=== PATIENT | female | born 1950 | race Caucasian/White ===

== ENCOUNTER → 2023-12-03 14:42 | Outpatient (BNVA) | payer MEDICARE, BC, SELFPAY | PROVIDERS: PCP Nurse Practitioner Family; Visit Provider Podiatrist Foot & Ankle Surgery | DX: M79.671 Pain in right foot (principal); M79.672 Pain in left foot; M20.5X1 Other deformities of toe(s) (acquired), right foot; M20.5X2 Other deformities of toe(s) (acquired), left foot; M77.41 Metatarsalgia, right foot; M77.42 Metatarsalgia, left foot | CPT/HCPCS: 73630; 99203 ==

== ENCOUNTER 2023-12-26 11:19 | Outpatient (CLI) | payer MEDICARE, BC, SELFPAY | END 2023-12-26 11:20 | disposition home or self-care (01) | LOC: SPT 11:20 | PROVIDERS: PCP Nurse Practitioner Family; Visit Provider Podiatrist Foot & Ankle Surgery | DX: Z46.89 Encounter for fitting and adjustment of other specified devices (principal); M20.21 Hallux rigidus, right foot; M20.22 Hallux rigidus, left foot | CPT/HCPCS: L3030 ==